=== PATIENT | female | born 2000 | race Caucasian/White ===

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

== ENCOUNTER 2018-02-06 21:43 | Emergency (ER) | payer BC ==
[~2018-02-06] VITALS: Ht 167.6 cm; Wt 78.5 kg
[2018-02-06 21:58] VITALS: TEMP 97.4
[2018-02-07 02:26] VITALS: BP 117/75; PULSE 78
== END 2018-02-07 02:41 | disposition home or self-care (01) ==
LOC: COL.ER 21:43
DX: S43.004A Unspecified dislocation of right shoulder joint, initial encounter (principal); G40.909 Epilepsy, unspecified, not intractable, without status epilepticus; F17.210 Nicotine dependence, cigarettes, uncomplicated; Z87.828 Personal history of other (healed) physical injury and trauma; Z88.0 Allergy status to penicillin; Z88.5 Allergy status to narcotic agent; Z88.8 Allergy status to other drugs, medicaments and biological substances; W18.30XA Fall on same level, unspecified, initial encounter; Y92.009 Unspecified place in unspecified non-institutional (private) residence as the place of occurrence of the external cause
CPT/HCPCS: J0670; J2060; J7030

== ENCOUNTER 2018-03-09 04:16 | Emergency (ER) | payer BC ==
[~2018-03-09] VITALS: Ht 167.6 cm; Wt 75.9 kg
[2018-03-09 04:20] VITALS: TEMP 98.5
[2018-03-09] MEDS ORDERED: KEPPRA 500MG500 MG PO (10:48)
[2018-03-09 11:06] VITALS: BP 134/69; PULSE 60
== END 2018-03-09 11:06 | disposition home or self-care (01) ==
LOC: COL.ER 04:16
DX: S43.004A Unspecified dislocation of right shoulder joint, initial encounter (principal); G40.909 Epilepsy, unspecified, not intractable, without status epilepticus; W18.39XA Other fall on same level, initial encounter

== ENCOUNTER 2018-07-15 03:02 | Emergency (ER) | payer BC ==
[~2018-07-15] VITALS: Ht 172.7 cm; Wt 63.6 kg
[~2018-07-15 03:02] MED LIST changes: +KEPPRA 500MG500 MG PO
[2018-07-15 03:16] LABS: BASO % 0.1 % (0.0-2.0); EOS # 0.1 (0.0-0.7); EOS % 1.4 % (0-4.0); GRAN # 4.7 (1.4-6.5); GRAN % 67.7 % (42.2-75.2); HEMATOCRIT 39.5 % (35.0-45.0); HEMOGLOBIN 13.3 g/dl (12.0-15.0); LYMPH # 1.7 (1.2-3.4); LYMPH % 24.6 % (20.0-51.0); MEAN CELL VOLUME 78 fl (80.0-95.0); MEAN CORPUSCULAR HEMOGLOBIN 26 pg (26.0-32.0); MEAN CORPUSCULAR HGB CONC 34 g/dl (33.0-37.0); MEAN PLATELET VOLUME 9.8 fl (7.4-10.4); MONO # 0.4 (0.1-0.6); MONO % 5.8 % (1.7-9.3); PLATELET COUNT 326 K/mm3 (130-400); RED BLOOD COUNT 5.09 M/mm3 (4.10-5.30); REDCELL DISTRIBUTION WIDTH-CV 13.3 % (11.5-14.5)
[2018-07-15 03:21] VITALS: TEMP 98.3
[2018-07-15 03:23] LABS: ARTERIAL BLD GAS O2 SATURATION 93.9 % (92-100); ARTERIAL BLD GAS TCO2 CT 20.2; ARTERIAL BLOOD GAS BASE EXCESS -3.9 (-2-2); ARTERIAL BLOOD GAS HCO3 19.3 meq/L (22-26); ARTERIAL BLOOD GAS PCO2 30.2 mmHg (35-45); ARTERIAL BLOOD GAS PO2 71.4 mmHg (80-100); ARTERIAL BLOOD GAS pH 7.42 (7.35-7.45)
[2018-07-15 03:27] LABS: ALANINE AMINOTRANSFERASE 21 U/L (9-52); ALBUMIN 4.3 gm/dL (3.5-5.0); ALCOHOL(ethanol),MEDICAL < 10 mg/dL; ALKALINE PHOSPHATASE 48 U/L (50-136); ANION GAP 13 mmol/L (7-16); AST,SGOT 27 U/L (15-37); BILIRUBIN,TOTAL 0.4 mg/dL (0.0-1.0); BLOOD UREA NITROGEN 12 mg/dL (7-17); CALCIUM 9.1 mg/dL (8.4-10.2); CARBON DIOXIDE 20 mmol/L (22-30); CHLORIDE 106 mmol/L (98-107); GLUCOSE 108 mg/dL (74-106); LIPASE 66 U/L (23-300); MAGNESIUM 1.8 mg/dL (1.6-2.3); POTASSIUM 3.6 mmol/L (3.4-5.0); SODIUM 139 mmol/L (137-145); TOTAL PROTEIN 6.9 gm/dL (6.4-8.2)
[2018-07-15 03:43] LABS: PROLACTIN 38.3 ng/mL (3.0-18.6)
[2018-07-15 03:53] LABS: TRICYCLIC ANTIDEPRESS URINE NEGATIVE
[2018-07-15 07:40] VITALS: BP 114/76; PULSE 99
== END 2018-07-15 07:45 | disposition short-term general hospital (02) ==
LOC: COL.ER 03:02
PROVIDERS: Emergency Medicine
DX: G40.909 Epilepsy, unspecified, not intractable, without status epilepticus (principal)
CPT/HCPCS: J1953